=== PATIENT | female | born 2000 | race Caucasian/White ===

== ENCOUNTER 2024-01-29 11:03 | Inpatient (IN) | payer OTHER, MEDICAID, SELFPAY ==
--- NOTE | 2024-01-29 11:08 | ED_ITS ---
HPI - General Adult General Chief complaint: General Medical Stated complaint: Dizziness Time Seen by Provider: 01/29/24 11:37 Source: patient Mode of arrival: ambulatory Limitations: no limitations History of Present Illness ED Provider: KYRIE EID narrative: 23 yo patient PMH of depression, PTSD, being worked up at [facility] for decline since November and chest pain - has editor newspaper at [place] had ECHO on 01/26 no GWMA and right ventricle was normal, EF 60% and valves normal. He notes here with his sister he isn't getting up out of bed, daily headaches, stomach pain, fatigue. No SI. Doesn't feel he is depressed. NO SI. He was taken off all of his medications including his testosterone in November when this started he is only on his sertraline. at [facility], negative tick panel, RPR, HIV, VIJAYA, ECHO, CT head, CXR, TSH and thyroid panel, negative porphyria panel MD complaint: chest pain, headaches, weakness, fatigue Onset (ago): month(s) (since November) Location: head and chest Radiation: non-radiation Severity: severe Quality: aching Pain Consistency: constant Relieving factors: none Exacerbating factors: movement and other (exertion) Associated symptoms: chest pain, headaches, loss of appetite, malaise and weakness Treatments prior to arrival: other (significant work up at [facility]) Related Data Allergies Allergy/AdvReac Type Severity Reaction Status Date / Time No Known Allergies Allergy Verified 01/29/24 11:14 Review of Systems 2 Review of Systems: Constitutional : No Fever, No Chills, pos Fatigue ENT/Mouth : No sore throat, No Rhinorrhea Eyes: No Eye Pain, No Swelling, No Redness Cardiovascular : pos Chest Pain, No SOB, No Dyspnea on Exertion Respiratory : No Cough, No Sputum Gastrointestinal : No Nausea, No Vomiting, No Diarrhea, pos abdominal Pain Genitourinary : No Dysuria, No Urinary Frequency, No Hematuria, Musculoskeletal : No joint pain, No Myalgias, No Joint Swelling Skin : No Skin Lesions, No rash Neuro : pos Weakness, No Numbness, No Dizziness, positive Headache Psych : No Anxiety/Panic, pos Depression Heme/Lymph: No Bruising, No Bleeding,No Lymphadenopathy Endocrine : No Polyuria, No Polydipsia All other systems reviewed and are negative [facility] Past Medical History Attestation statement: The following information was validated with the patient. Source: old records reviewed Medical History PTSD (post-traumatic stress disorder) Depression Social History Social History (Updated 01/29/24 @ 12:37 by Gela Musa DO) Patient Tobacco Use Status: Never used Tobacco Advance Directives: No Advance Directives Information Provided: Yes Physical Exam ED Vital Signs: Vital Signs - 24 hr 01/29/24 11:09 01/29/24 11:41 01/29/24 11:41 Temperature 97.1 F Pulse Rate 78 68 76 Respiratory Rate 16 Blood Pressure 108/75 108/68 105/67 Pulse Oximetry 98 Oxygen Delivery Method Room Air 01/29/24 11:41 01/29/24 12:24 Temperature Pulse Rate 84 77 Respiratory Rate 16 Blood Pressure 113/74 112/71 Pulse Oximetry 97 Oxygen Delivery Method Room Air BMI result Body Mass Index 25.7 Appearance: Alert. Oriented X3. No acute distress. flat affect, withdrawn, appears tired Eyes: Pupils equal, round and reactive to light. ENT: Pharynx normal. Neck: Normal inspection. Neck supple. CVS: Normal heart rate and rhythm. Pulses normal. Respiratory: No respiratory distress. Breath sounds normal. Abdomen: Soft and nontender. Skin: Skin warm and dry. Normal skin color. Normal skin turgor. Extremities: No lower extremity edema. No calf ttp Neuro: Oriented X 3. No motor deficit. No sensory deficit. Course Course Course Narrative: This is a rapid medical exam performed by Ruby Sheldon NP: Additional HPI, ROS, PE not included below will be deferred to primary provider. Patient is a 23-year-old assigned female at who identifies as male, preferred name is Alison, presenting to the emergency department with complaint of headaches, chest pain, and dizziness since November. Was diagnosed by PCP with RV hypertrophy but has not been treated for this yet. Saw editor newspaper this week who referred patient to the ED. Patient went to [facility] and had head CT, CXR, labs, UA and was discharged. Patient specifically requesting an MRI. Plan: EKG, labs Reevaluation(s) Reevaluation #1: inpatient bed search Medical Decision Making Medical Decision Making MDM Narrative: 23 yo patient PMH of depression, PTSD, being worked up at [facility] here with longstanding depression, chest pain, abdominal pain, fatigue he does not have RVH based off of ECHO on 01/26 per records from [facility] at this time given symptoms will obtain basic labs, EKG, ddimer, ortho VS here are negative. I did offer care team consult they are agreeable. He is only on his sertraline. I am not sure why they took him off his testosterone. It seems that all of his symptoms started around November when he was taken off of his medications and stressors started - I do suspect that he has severe depression contributing to his symptoms. Differential Diagnosis Differential Diagnoses: The differential diagnosis associated with the presentation includes fatigue, depression, atypical chest pain Admission/Observation Consideration of admission/observation: Escalation of care including admission/observation considered medical findings negative, negative ortho VS physician observation started at 1246pm pending CARE team Consult Healthcare Provider Management of the patient was discussed with: Behavioral Health Provider inpatient bed search S12 Lab Data MDM Lab Attestation statement: I reviewed the patient's lab results. 01/29/24 11:37 01/29/24 11:37 Labs: Lab Results 01/29/24 01/29/24 Range/Units 11:37 12:27 WBC 5.7 (4.8-10.8) X10*3/uL RBC 4.99 (4.20-5.50) X10*6/uL Hgb 13.7 (12.0-16.0) g/dl Hct 40.4 (37.0-47.0) % MCV 81.0 (80.0-98.0) fL MCH 27.5 (27.0-33.0) pg MCHC 33.9 (31.0-35.0) g/dl RDW 14.3 (11.0-16.0) % Plt Count 257 (160-400) X10*3/uL MPV 8.9 L (9.4-12.3) fL Immature Gran % (Auto) 0.7 H (0.0-0.4) % Neut % (Auto) 54.8 (45-73) % Lymph % (Auto) 32.5 (20-40) % Carbon % (Auto) 6.0 (2-11) % Eos % (Auto) 5.3 H (0-4) % Baso % (Auto) 0.7 (0-2) % Lymph # (Auto) 1.8 (1.2-4.9) X10*3/uL Carbon # (Auto) 0.3 (0.1-1.2) X10*3/uL Eos # (Auto) 0.3 (0.0-0.4) X10*3/uL Baso # (Auto) 0.0 (0.0-0.2) X10*3/uL Abs Immat Gran (auto) 0.04 H (0.00-0.03) X10*3/uL Absolute Neuts (auto) 3.1 (2.0-8.3) x10*3/uL Absolute Nucleated RBC 0.000 (0.0-0.012) X10*3/uL Nucleated RBC % (auto) 0.0 (0.0-0.2) /100WBC PT 12.5 (11.1-13.3) SEC INR 1.0 (0.9-1.1) D-Dimer High Sensitivty 175 NG/ML Sodium 141 (135-145) mmol/L Potassium 3.6 (3.3-5.1) mmol/L Chloride 106 (96-108) mmol/L Carbon Dioxide 25 (22-29) mmol/L Anion Gap 14 (12-20) BUN 13 (9-16) mg/dL Creatinine 0.76 (0.5-1.4) mg/dL Estim Creat Clear Calc 107.2 Estimated GFR > 60 Random Glucose 148 H (60-115) mg/dL Calcium 9.8 (8.4-10.2) mg/dL Magnesium 1.8 (1.6-2.6) mg/dL Total Bilirubin 0.3 (0.0-1.0) mg/dL AST 10 (5-31) U/L ALT 7 (0-31) U/L Alkaline Phosphatase 64 (39-117) U/L Troponin I High Sens < 2.7 (<3.5-17.0) ng/L Total Protein 7.3 (6.5-8.0) g/dL Albumin 4.5 (3.5-5.0) g/dL Beta HCG, Quant < 2 mIU/mL Urine Color Dark Yellow Urine Appearance Clear Urine pH 6.0 (5.0-9.0) Ur Specific [place] 1.025 (1.005-1.025) Urine Protein Trace (Neg-Trace) mg/dL Urine Glucose (UA) Negative (Negative) mg/dL Urine Ketones Trace (Negative) mg/dL Urine Blood Negative (Negative) Urine Nitrite Negative (Negative) Ur Leukocyte Esterase Negative (Negative) Independent Interpretation I performed an independent interpretation of an: EKG Interpretation: Rate: 81 Rhythm: NSR Allen: rightward Normal P waves. Normal JAMMIE. Normal QRS complex. ST T wave : inverted t waves V1-V3, no TREVOR qTC: 436 prior studies: The study has been interpreted contemporaneously by me. . Independent Historian Clinical information obtained from an independent historian. History obtained from or confirmed by: Friend External Record Review External record reviewed: Outpatient record Discharge Plan Discharge Clinical Impression: Severe depression Fatigue Qualifiers: Fatigue type: unspecified Qualified Code(s): R53.83 - Other fatigue Patient Disposition: Still a Patient Print Language: Kyrgyz
[2024-01-29 11:09] VITALS: BP 108/75; PULSE 78; RESP 16; TEMP 36.2; O2SAT 98; BMI 25.7
--- NOTE | 2024-01-29 11:14 | ECG_ITS ---
Test Reason : headache Blood Pressure : / mmHG Vent. Rate : 081 BPM Atrial Rate : 081 BPM P-R Int : 154 ms QRS Dur : 086 ms QT Int : 376 ms P-R-T Axes : 051 094 049 degrees QTc Int : 436 ms Normal sinus rhythm Rightward axis Nonspecific ST and T wave abnormality Abnormal ECG No previous ECGs available Referred By: Tierra Sheldon Electronically Signed By:SKYLER LO MD
[2024-01-29 11:41] VITALS: BP 105/67; BP 108/68; BP 113/74; PULSE 68; PULSE 76; PULSE 84
[2024-01-29 11:42] LABS: MANUAL DIFF FLAG NO
[2024-01-29 11:43] LABS: Basophils Percent Auto 0.7 % (0-2); Eosinophils Absolute Auto 0.3 X10*3/uL (0.0-0.4); Eosinophils Percent Auto 5.3 % (0-4); Hematocrit 40.4 % (37.0-47.0); Hemoglobin 13.7 g/dl (12.0-16.0); Imm Gran Abs Auto 0.04 X10*3/uL (0.00-0.03); Imm Gran Pct Auto 0.7 % (0.0-0.4); Lymphocytes Absolute Auto 1.8 X10*3/uL (1.2-4.9); Lymphocytes Percent Auto 32.5 % (20-40); Mean Corpuscular HGB Conc 33.9 g/dl (31.0-35.0); Mean Corpuscular Hemoglobin 27.5 pg (27.0-33.0); Mean Platelet Volume 8.9 fL (9.4-12.3); Monocytes Absolute Auto 0.3 X10*3/uL (0.1-1.2); Neutrophils Absolute Auto 3.1 x10*3/uL (2.0-8.3); Neutrophils Percent Auto 54.8 % (45-73); Platelet Count 257 X10*3/uL (160-400); Red Blood Count 4.99 X10*6/uL (4.20-5.50); Red Cell Distribution Width 14.3 % (11.0-16.0); White Blood Count 5.7 X10*3/uL (4.8-10.8)
[2024-01-29 11:56] LABS: Prothrombin Time 12.5 SEC (11.1-13.3)
[2024-01-29 12:04] LABS: Alanine Aminotransferase 7 U/L (0-31); Albumin Level 4.5 g/dL (3.5-5.0); Alkaline Phosphatase 64 U/L (39-117); Anion Gap 14 (12-20); Aspartate Amino Transferase 10 U/L (5-31); Bilirubin Total 0.3 mg/dL (0.0-1.0); Blood Urea Nitrogen 13 mg/dL (9-16); Calcium 9.8 mg/dL (8.4-10.2); Carbon Dioxide 25 mmol/L (22-29); Chloride 106 mmol/L (96-108); Creatinine Clr Calc Pharmacy 107.2; Estimated Glomerular Filt Rate > 60; Glucose Random 148 mg/dL (60-115); Magnesium 1.8 mg/dL (1.6-2.6); Potassium 3.6 mmol/L (3.3-5.1); Sodium 141 mmol/L (135-145); Total Protein 7.3 g/dL (6.5-8.0)
[2024-01-29 12:09] LABS: HCG Quantitative < 2 mIU/mL; Troponin-I High Sensitivity < 2.7 ng/L (<3.5-17.0)
[2024-01-29 12:11] LABS: D Dimer High Sensitivity 175 NG/ML
[2024-01-29 12:24] VITALS: BP 112/71; PULSE 77; RESP 16; O2SAT 97
[2024-01-29 12:35] LABS: Appearance Urine Clear; Color Urine Dark Yellow; Glucose Urine UA Negative (Negative); Leukocyte Esterase Urine Negative (Negative); Nitrite Urine Negative (Negative); Specific Gravity - Urine 1.025 (1.005-1.025); Urine Blood Negative (Negative); Urine Ketones Trace mg/dL (Negative); Urine Protein Trace mg/dL (Neg-Trace)
--- NOTE | 2024-01-29 12:46 | MHC.CARE ---
Care team met with Pt who was sitting up in their stretcher. Pt noted that they are here for medical reasons as they do not feel well and was hoping for an MRI. Pt's partner stated they are checking for a possible blood clot however they will not be doing an MRI. There is a possibility that Pt may be suffering psychosomatic which PT denies. A consult was requested as there was noted previous depression, however PT reported that he was doing fine mentally and had no concerns other than what he was experiencing medically. A resource packet was provided to Pt in case of future need.
[2024-01-29 18:06] LABS: Amphetamine Screen Urine Not Detected (Not Detect); Barbiturates, Urine Not Detected (Not Detect); Benzodiazepines Screen Urine Not Detected (Not Detect); Buprenorphine Scr Not Detected (Not Detect); Cannabinoid Screen Urine Not Detected (Not Detect); Cocaine Screen Urine Not Detected (Not Detect); Fentanyl, urine Not Detected (Not Detect); Methadone Screen, Urine Not Detected (Not Detect); Opiate Screen Urine Not Detected (Not Detect); Oxycodone Screen Urine Not Detected (Not Detect); Phencyclidine Screen Urine Not Detected (Not Detect)
--- NOTE | 2024-01-29 19:19 | PC.NURSE ---
patient appears to remain at rest at present respirations are even and unlabored patient appears in no distress.
[2024-01-29 20:39] VITALS: BP 97/67; PULSE 83; RESP 18; TEMP 36.6; O2SAT 98
[2024-01-30 07:02] VITALS: RESP 16
--- NOTE | 2024-01-30 07:04 | PC.NURSE ---
Assumed care of patient at 0645, patient appears to be sleeping, respirations even and unlabored, no apparent distress noted. Continue plan of care for inpatient bedsearch
--- NOTE | 2024-01-30 15:51 | PC.NURSE ---
Patient continues to remain withdrawn, only exiting room to use the bathroom, offers no complaints to this RN, respirations even and unlabored, no apparent distress noted at this time
--- NOTE | 2024-01-30 16:29 | MHC.CARE ---
CARLOS ALBERTO completed for initial boarding- ID # [id number]
[2024-01-30 18:43] VITALS: BP 113/92; PULSE 61; RESP 14; O2SAT 97
--- NOTE | 2024-01-30 19:12 | PC.NURSE ---
patient appears to remain at rest at present, respirations are even and unlabored patient appears in no distress.
[2024-01-30 20:13] VITALS: BP 111/68; PULSE 105; RESP 16; TEMP 36.3; O2SAT 97
[2024-01-31 01:53] VITALS: BP 102/64; PULSE 98; RESP 18; TEMP 36.4; O2SAT 100
[2024-01-31] MEDS: Acetaminophen 325 MG TABLET 975 MG PO (03:12)
[2024-01-31 05:57] VITALS: BP 117/80; PULSE 104; RESP 16; TEMP 36.9; O2SAT 99
[2024-01-31 06:00] VITALS: PULSE 107; RESP 16; O2SAT 97
--- NOTE | 2024-01-31 06:06 | PC.NURSE ---
REPORTED AMNESIA THIS AM FOR LAST 2 DAYS
--- NOTE | 2024-01-31 07:22 | PC.NURSE ---
Assumed care of patient at 0645, patient appears to be in better mood today than yesterday, offering no complaints to this RN, calm and cooperative, smiling and conversing with staff. patient attempted to call his little sister and left a message for her to call back. Continue plan of care for inpatient bedsearch at this time
[2024-01-31 15:50] VITALS: BP 113/71; PULSE 82; RESP 14; TEMP 36.5; O2SAT 98; BMI 25.0
[2024-01-31] MEDS: Acetaminophen 325 MG TABLET 650 MG PO (17:11)
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
[2024-01-31 20:00] VITALS: BP 105/56; PULSE 79; RESP 18; TEMP 35.7
[2024-02-01] MEDS: Acetaminophen 325 MG TABLET 650 MG PO (04:15)
[2024-02-01 08:14] VITALS: BP 100/59; PULSE 104; RESP 16; TEMP 36.4; O2SAT 99
[2024-02-01 08:26] LABS: Estimated Average Glucose 88 mg/dL; Hemoglobin A1c % 4.7 % (<6.0)
[2024-02-01 08:44] LABS: Cholesterol 274 mg/dL (<200); HDL Cholesterol 39 mg/dL (>40); LDL Cholesterol Calculated 209 mg/dL (<100); Triglycerides 132 mg/dL (<150)
[2024-02-01 09:05] LABS: Folate 6.2 ng/mL (> or = 4.0); Vitamin B12 539 pg/mL (200-900)
--- NOTE | 2024-02-01 10:04 | HO.PSYADMNOT ---
HPI Date of Service: 02/01/24 Chief Complaint: Dizziness Sources of Information: patient interviewed, chart reviewed and crisis/core team assessment reviewed HPI Subjective Notes: Cottrell Warning and Conditional Voluntary Narrative: Alison is a 23 year-old trans F to M individual who was initially brought by sister due to chest pain, fatigue and dizziness. In the ED, EKG showed non specific ST changes. CBC unremarkable. CMP without electrolyte imbalances, renal function wnl BUN 13, Cr 0.76. LFT wnl. Utox was negative. Pt apparently had been at [facility] last week and work up was negative (not available to this securities underwriter). On the unit, pt noted to walk with some hesitancy reporting dizziness and lightheadedness. BP taken at that time. SBP on low end 101/70, HR 70 sitting, standing, BP did not show significant change but HR went up to 110. Pt continued to report symptoms of dizziness and lightheadedness and had to hold on to chair. He also reports headache, mental fogginess, tiredness and weakness. He reports that he is not sure about events leading to this admission. Pt reports he has been experiencing dizziness, lightheadedness, headache for some months. He reports he has been seen by his PCP and currently undergoing medical work up. He reports he has seen press box custodian that refer him to ED due to orthostatic changes in BP (no significant changes observe here but clearly HR compensating for it). Pt reports he was told that because they didn't find anything wrong with him they sent him to mental health unit because they told me symptoms probably are in my head. He denies SI/HI. He is open to consider any possibilities relating to his symptoms. No VH/AH. No overt delusional content unless somatic preoccupation in fact are functional. Past Psychiatric History: Inpt: [facility] 2023; [place] 07/2023 OP- sees therapist. Past medication trial: adderall, prazosin. Hx of suicide attempts: denies Medical Evaluation Reviewed: Yes [facility] Medical History PTSD (post-traumatic stress disorder) Depression Family History: parents with substance use Social History: Grew up with parents and sister. completed BA. Currently not working. Substance History: denies Trauma History: reports hx of trauma no details provided- reports both during childhood and as adult Diagnostics Vital Signs (24Hr): Vital Signs - 24 hr 01/31/24 15:50 01/31/24 20:00 02/01/24 08:14 Temperature 97.7 F 96.3 F L 97.6 F Pulse Rate 82 79 104 H Respiratory Rate 14 18 16 Blood Pressure 113/71 105/56 L 100/59 L Pulse Oximetry 98 99 Oxygen Delivery Method Room Air Room Air BMI result Body Mass Index 25.0 Labs 01/29/24 11:37 01/29/24 11:37 Labs: Laboratory Results - last 48 hr 02/01/24 08:02 Estimat Average Glucose 88 Hemoglobin A1c % 4.7 Triglycerides 132 Cholesterol 274 H LDL Cholesterol, Calc 209 H HDL Cholesterol 39 L Vitamin B12 539 Folate 6.2 Meds/Allergies Meds Home Medications ?Medication ?Instructions ?Recorded ?Confirmed ?Type No Known Home Meds 01/30/24 01/30/24 History Allergies Allergies Allergy/AdvReac Type Severity Reaction Status Date / Time No Known Allergies Allergy Verified 01/29/24 11:14 Mental Status Exam Mental Status Exam Narrative: Appearance: wearing hospital gown, good hygiene, in NAD Behavior: cooperative and friendly Psychomotor: no agitation some mild retardation Speech: clear, some paused not due to thought blocking, but possible tiredness and some degree of somnolence, spontaneous TP: mostly linear TC: feeling weak, dizzy, open to treatment Mood: tired Affect: somnolent, intermittently withdrawn SI: denies HI: denies VH/AH: no overt delusions: no overt delusional content Insight/judgment: fair x 2. Memory/cog: alert, oriented x 3. somnolent but no formal testing. Assessment & Plan Assessment & Plan (1) MDD (major depressive disorder), recurrent episode, severe: Status: Acute Code(s): F33.2 - Major depressive disorder, recurrent severe without psychotic features Plan Alison is a 23 year-old F-to-M trans who initially was brought by sister due to dizziness, chest pain, headache, fatigue, unexplained weight loss which has been going on for some months and significantly affecting ability to function. Work up has been for the most part negative including EKG, CMP without electrolyte abnormalities, CBC mostly unremarkable. He denies SI/HI. We discussed collaboration with PCP review medical work up, as it is not clear that current symptoms related to primarily psychiatric condition. He used to be on adderal, prazosin which were stopped due to reports of dizziness and low BP. PLAN 1. Admit to , CV, 15 minutes checks for safety 2. obtain collateral information from PCP, sister 3. aftercare planning 4. will hold on starting new med until collateral information. Patient educated on: diagnosis and medication risk/benefits Reason for continued inpatient stay Substantial Risk for: inability to function Statement Statement: I have reviewed the history and physical and performed a pertinent examination on my patient. No changes have occurred unless specified. If the History and Physical was not performed prior to admission, the Hospitalist's service will be consulted for completing the admission physical. Time Spent With Patient Time: Total time managing care of this patient today ____ minutes.
[2024-02-01 15:42] VITALS: BP 108/68; PULSE 66
[2024-02-01 20:00] VITALS: BP 105/65; PULSE 102; RESP 16; TEMP 36.2; O2SAT 97
[2024-02-02] MEDS: Acetaminophen 325 MG TABLET 650 MG PO (04:10)
[2024-02-02 08:00] VITALS: BP 106/62; PULSE 76; RESP 16; TEMP 37.1; O2SAT 99
--- NOTE | 2024-02-02 16:39 | HO.PSYCHPN ---
Subjective Subjective Date of Service: 02/02/24 Reason For Visit: Dizziness Subjective Notes: Conditional Voluntary Healthcare Proxy: No Guardianship: No Medical Problems Affecting Mental Status: No Interim History: Pt sleeping when tw attempted to meet with them. Attempted x 2 Medication Compliance: Yes Attending Groups: No Review of Systems Medical Review of Systems: unchanged Review of Systems Review of Systems asleep when attempted to meet with pt Mental Status Exam Mental Status Exam Patient Behavior: Asleep Diagnostics Vital Signs (24Hr): Vital Signs - 24 hr 02/01/24 20:00 02/02/24 08:00 Temperature 97.1 F 98.7 F Pulse Rate 102 H 76 Respiratory Rate 16 16 Blood Pressure 105/65 106/62 Pulse Oximetry 97 99 Oxygen Delivery Method Room Air Room Air BMI result Body Mass Index 25.0 Labs 01/29/24 11:37 01/29/24 11:37 Labs: Laboratory Results - last 48 hr 02/01/24 08:02 Estimat Average Glucose 88 Hemoglobin A1c % 4.7 Triglycerides 132 Cholesterol 274 H LDL Cholesterol, Calc 209 H HDL Cholesterol 39 L Vitamin B12 539 Folate 6.2 Medications Medications Current Medications Acetaminophen (Acetaminophen 325 Mg Tablet) 650 mg PO Q6H PRN PRN Reason: Headache/Pain Mild Scale (1-3) Last Admin: 02/02/24 04:10 Dose: 650 mg Al Hydroxide/Mg Hydroxide (Magnesium Hydrox/Alum Hydrox 30 Ml Oral.Susp) 30 ml PO Q6H PRN PRN Reason: Heartburn/Nausea Hydroxyzine HCl (Hydroxyzine Hcl 25 Mg Tablet) 25 mg PO Q6H PRN PRN Reason: Anxiety Magnesium Hydroxide (Milk Of Magnesia 30 Ml Oral.Susp) 30 ml PO DAILY PRN PRN Reason: Constipation Nicotine (Nicotine 21 Mg Patch.Td24) 21 mg TRANSDERMA DAILY PRN PRN Reason: smoking cessation Nicotine Polacrilex (Nicotine Polacrilex 2 Mg Gum) 4 mg BUCCAL Q2H PRN PRN Reason: Nicotine Cravings Trazodone HCl (Trazodone Hcl 50 Mg Tablet) 50 mg PO BEDTIME MRX1 PRN PRN Reason: Insomnia Allergies Allergies Allergy/AdvReac Type Severity Reaction Status Date / Time No Known Allergies Allergy Verified 01/29/24 11:14 Assessment & Plan Assessment & Plan (1) MDD (major depressive disorder), recurrent episode, severe: Status: Acute Code(s): F33.2 - Major depressive disorder, recurrent severe without psychotic features Plan Alison is a 23 year-old F-to-M trans who initially was brought by sister due to dizziness, chest pain, headache, fatigue, unexplained weight loss which has been going on for some months and significantly affecting ability to function. Work up has been for the most part negative including EKG, CMP without electrolyte abnormalities, CBC mostly unremarkable. He denies SI/HI. We discussed collaboration with PCP review medical work up, as it is not clear that current symptoms related to primarily psychiatric condition. He used to be on adderal, prazosin which were stopped due to reports of dizziness and low BP. PLAN 1. Admit to M5, CV, 15 minutes checks for safety 2. obtain collateral information from PCP, sister 3. aftercare planning 4. will hold on starting new med until collateral information. 02/02/24: Continue to work with pt, today, they were asleep and did not participate. Reason for continued inpatient stay Substantial Risk for: med/psych decompensation Time Spent With Patient Time: Total time managing care of this patient today ____ minutes.
[2024-02-02 18:01] VITALS: BP 98/65; PULSE 76; RESP 16; TEMP 37.2; O2SAT 98
[2024-02-02 19:50] VITALS: BP 110/55; PULSE 81; RESP 16; TEMP 36.2; O2SAT 98
[2024-02-02 22:04] LABS: IDNOW Serial# 08D9AD1C; Strep A Nucleic Acid Negative (Negative)
[2024-02-03] MEDS: hydrOXYzine HCL 25 MG TABLET PO (01:20)
[2024-02-03 07:00] VITALS: BMI 25.5
[2024-02-03 08:00] VITALS: BP 104/64; PULSE 84; RESP 17; TEMP 36.9; O2SAT 100
--- NOTE | 2024-02-03 15:40 | P.PNPSI_ITS ---
Subjective Subjective Date of Service: 02/03/24 Reason For Visit: Dizziness Subjective Notes: Conditional Voluntary Healthcare Proxy: No Guardianship: No Medical Problems Affecting Mental Status: No Interim History: Discussed symptoms prior to admission which are a concern including problems with thinking, speaking, clarity of focus and thought. Reports some brief improvement this a.m. with reading, yet overall symptoms are like a puzzle . Reports cardiac consult OP at [place], Dr. Keith told pt there was an issue with his cardiac function, however, he does not know what this was. Message left with [facility] [phone]. Pt also reports no hx of meeting with neurology-will request consult for their input. Per team, sister reports pt has seen Dr. Valdivia. Pt reports a history of complex trauma, yet does not associate this or a potential trigger to current sx exacerbation. Medication Compliance: Yes Side effects from medications: No Attending Groups: No Review of Systems as noted Medical Review of Systems: unchanged Review of Systems Review of Systems as noted Mental Status Exam Mental Status Exam Patient Appearance: Appropriate Patient Orientation: Person, Place, Time and Situation Level of Consciousness: Alert Patient Behavior: Talkative and Good Eye Contact Mood Description: Anxious and Apprehensive Affect Description: Anxious and Apprehensive Patient Cognition Impaired: No Ability to Follow Directions: Good Speech Pattern: Spontaneous Speech and Delayed Memory Description: Episodic Impaired Hallucinations: None Delusions: Not Present Thought Content: positive for Perseveration Depressive Symptoms: Difficulty Concentrating Judgement: Fair Diagnostics Vital Signs (24Hr): Vital Signs - 24 hr 02/02/24 18:01 02/02/24 19:50 02/03/24 08:00 Temperature 98.9 F 97.2 F 98.4 F Pulse Rate 76 81 84 Respiratory Rate 16 16 17 Blood Pressure 98/65 110/55 L 104/64 Pulse Oximetry 98 98 100 Oxygen Delivery Method Room Air Room Air Room Air BMI result Body Mass Index 25.5 Labs 01/29/24 11:37 01/29/24 11:37 Labs: Laboratory Results - last 48 hr 02/02/24 21:35 S. pyogenes GrpA JESSICA Negative Medications Medications Current Medications Acetaminophen (Acetaminophen 325 Mg Tablet) 650 mg PO Q6H PRN PRN Reason: Headache/Pain Mild Scale (1-3) Last Admin: 02/02/24 04:10 Dose: 650 mg Al Hydroxide/Mg Hydroxide (Magnesium Hydrox/Alum Hydrox 30 Ml Oral.Susp) 30 ml PO Q6H PRN PRN Reason: Heartburn/Nausea Hydroxyzine HCl (Hydroxyzine Hcl 25 Mg Tablet) 25 mg PO Q6H PRN PRN Reason: Anxiety Last Admin: 02/03/24 01:20 Dose: 25 mg Magnesium Hydroxide (Milk Of Magnesia 30 Ml Oral.Susp) 30 ml PO DAILY PRN PRN Reason: Constipation Nicotine (Nicotine 21 Mg Patch.Td24) 21 mg TRANSDERMA DAILY PRN PRN Reason: smoking cessation Nicotine Polacrilex (Nicotine Polacrilex 2 Mg Gum) 4 mg BUCCAL Q2H PRN PRN Reason: Nicotine Cravings Trazodone HCl (Trazodone Hcl 50 Mg Tablet) 50 mg PO BEDTIME MRX1 PRN PRN Reason: Insomnia Allergies Allergies Allergy/AdvReac Type Severity Reaction Status Date / Time No Known Allergies Allergy Verified 01/29/24 11:14 Assessment & Plan Assessment & Plan (1) MDD (major depressive disorder), recurrent episode, severe: Status: Acute Code(s): F33.2 - Major depressive disorder, recurrent severe without psychotic features Plan Alison is a 23 year-old F-to-M trans who initially was brought by sister due to dizziness, chest pain, headache, fatigue, unexplained weight loss which has been going on for some months and significantly affecting ability to function. Work up has been for the most part negative including EKG, CMP without electrolyte abnormalities, CBC mostly unremarkable. He denies SI/HI. We discussed collaboration with PCP review medical work up, as it is not clear that current symptoms related to primarily psychiatric condition. He used to be on adderal, prazosin which were stopped due to reports of dizziness and low BP. PLAN 1. Admit to M5, CV, 15 minutes checks for safety 2. obtain collateral information from PCP, sister 3. aftercare planning 4. will hold on starting new med until collateral information. 02/02 Neurology consult Connect with OP cardiac team Reason for continued inpatient stay Substantial Risk for: rapid decompensation and med/psych decompensation Time Spent With Patient Time: Total time managing care of this patient today ____ minutes.
[2024-02-03 19:54] VITALS: BP 112/60; PULSE 80; RESP 18; TEMP 36.2; O2SAT 97
--- NOTE | 2024-02-04 | ECG_ITS ---
Test Reason : CP, cardiac Hx Blood Pressure : / mmHG Vent. Rate : 063 BPM Atrial Rate : 063 BPM P-R Int : 162 ms QRS Dur : 088 ms QT Int : 418 ms P-R-T Axes : 053 092 071 degrees QTc Int : 427 ms Normal sinus rhythm Rightward axis Borderline ECG When compared with ECG of 29-JAN-2024 11:13, T wave inversion no longer evident in Anterior leads Referred By: Luciano Fischer Electronically Signed By:RICKIE MARINO
[2024-02-04 08:14] VITALS: BP 100/57; PULSE 90; RESP 18; TEMP 37.5; O2SAT 100
[2024-02-04] MEDS: Ondansetron ODT 4 MG TAB.RAPDIS TRANSLINGU (11:30)
--- NOTE | 2024-02-04 11:48 | P.PNPSI_ITS ---
Subjective Subjective Date of Service: 02/04/24 Reason For Visit: Dizziness Subjective Notes: Conditional Voluntary Healthcare Proxy: No Guardianship: No Medical Problems Affecting Mental Status: No Interim History: Pt considering re-starting Sertraline. Neurology consult called for vertigo, headaches, dizziness, lightheadedness, pt perceiving cognition changes speech changes and periods of amnesia Message left with [facility], ? [facility] Medication Compliance: Yes Side effects from medications: No Review of Systems Acute medical concerns: No Medical Review of Systems: unchanged Review of Systems Review of Systems as noted Mental Status Exam Mental Status Exam Patient Appearance: Appropriate Patient Orientation: Person, Place, Time and Situation Level of Consciousness: Alert Patient Behavior: Talkative and Good Eye Contact Mood Description: Anxious and Apprehensive Affect Description: Anxious and Apprehensive Patient Cognition Impaired: No Ability to Follow Directions: Good Speech Pattern: Spontaneous Speech and Delayed Memory Description: Episodic Impaired Hallucinations: None Delusions: Not Present Thought Content: positive for Perseveration Depressive Symptoms: Difficulty Concentrating Judgement: Fair Diagnostics Vital Signs (24Hr): Vital Signs - 24 hr 02/03/24 19:54 02/04/24 08:14 Temperature 97.2 F 99.5 F Pulse Rate 80 90 Respiratory Rate 18 18 Blood Pressure 112/60 100/57 L Pulse Oximetry 97 100 Oxygen Delivery Method Room Air Room Air BMI result Body Mass Index 25.5 Labs 01/29/24 11:37 01/29/24 11:37 Labs: Laboratory Results - last 48 hr 02/02/24 21:35 S. pyogenes GrpA JESSICA Negative Medications Medications Current Medications Acetaminophen (Acetaminophen 325 Mg Tablet) 650 mg PO Q6H PRN PRN Reason: Headache/Pain Mild Scale (1-3) Last Admin: 02/02/24 04:10 Dose: 650 mg Al Hydroxide/Mg Hydroxide (Magnesium Hydrox/Alum Hydrox 30 Ml Oral.Susp) 30 ml PO Q6H PRN PRN Reason: Heartburn/Nausea Hydroxyzine HCl (Hydroxyzine Hcl 25 Mg Tablet) 25 mg PO Q6H PRN PRN Reason: Anxiety Last Admin: 02/03/24 01:20 Dose: 25 mg Magnesium Hydroxide (Milk Of Magnesia 30 Ml Oral.Susp) 30 ml PO DAILY PRN PRN Reason: Constipation Nicotine (Nicotine 21 Mg Patch.Td24) 21 mg TRANSDERMA DAILY PRN PRN Reason: smoking cessation Nicotine Polacrilex (Nicotine Polacrilex 2 Mg Gum) 4 mg BUCCAL Q2H PRN PRN Reason: Nicotine Cravings Ondansetron HCl (Ondansetron Odt 4 Mg Tab.Rapdis) 4 mg TRANSLINGU Q8H PRN PRN Reason: Nausea and Vomiting Last Admin: 02/04/24 11:30 Dose: 4 mg Trazodone HCl (Trazodone Hcl 50 Mg Tablet) 50 mg PO BEDTIME MRX1 PRN PRN Reason: Insomnia Allergies Allergies Allergy/AdvReac Type Severity Reaction Status Date / Time No Known Allergies Allergy Verified 01/29/24 11:14 Assessment & Plan Assessment & Plan (1) MDD (major depressive disorder), recurrent episode, severe: Status: Acute Code(s): F33.2 - Major depressive disorder, recurrent severe without psychotic features Plan Alison is a 23 year-old F-to-M trans who initially was brought by sister due to dizziness, chest pain, headache, fatigue, unexplained weight loss which has been going on for some months and significantly affecting ability to function. Work up has been for the most part negative including EKG, CMP without electrolyte abnormalities, CBC mostly unremarkable. He denies SI/HI. We discussed collaboration with PCP review medical work up, as it is not clear that current symptoms related to primarily psychiatric condition. He used to be on adderal, prazosin which were stopped due to reports of dizziness and low BP. PLAN 1. Admit to M5, CV, 15 minutes checks for safety 2. obtain collateral information from PCP, sister 3. aftercare planning 4. will hold on starting new med until collateral information. 02/02/24: Continue to work with pt, today, they were asleep and did not participate. 02/03: Continue eval/tx Reason for continued inpatient stay Substantial Risk for: rapid decompensation Time Spent With Patient Time: Total time managing care of this patient today ____ minutes.
--- NOTE | 2024-02-04 12:55 | P.CNNE_ITS ---
History of Present Illness Data of Consult Service Date: 02/04/24 Primary Care Provider: Hector Deras MD HPI This is a 23 year-old trans F to M individual who was initially brought by sister due to chest pain, fatigue and dizziness. In the ED, EKG showed non specific ST changes. Normal labs. Tox screen was negative. Noted to walk with some hesitancy reporting dizziness and lightheadedness. BP taken at that time was 101/70, HR 70 sitting, standing, BP did not show significant change but HR went up to 110. Pt continued to report symptoms of dizziness and lightheadedness and had to hold on to chair. He also reports headache, mental fogginess, tiredness and weakness. He reports that he is not sure about events leading to this admission. Pt reports he has been experiencing dizziness, lightheadedness, headache for some months. He reports he has been seen by his PCP and currently undergoing medical work up. He reports he has seen lining finisher that refer him to ED due to orthostatic changes in BP (not reproduced here) She reports memory changes that come and go in that she feels better in the early part of the day. Sometimes she gets momentarily disoriented as to where she is. She dropped out in final year of college at [employer]. She says she has had constant headache for 2 years that never goes away and periods of confusion and vision impairment. MRI of the brain at [facility] in August 2023 was unremarkable except for a single nonspecific white matter abnormality. She reports excessive sleeping of 16 hours a day. She was diagnosed with ADHD at age 14 and said that she felt better with the Adderall. She stopped all of her medications in November which included sertraline Adderall, mirtazapine and testosterone PMFSH Past Medical History Medical History PTSD (post-traumatic stress disorder) Depression Social History Social History (Updated 01/29/24 @ 12:37 by Gela Musa DO) Household Members: Other Household Members Other:: sister Angela Bo Housing: Apartment Do you presently have visiting nurse or other home services: No Unable to assess alcohol history related to: Refusing to respond Patient Tobacco Use Status: Never used Tobacco Smoked in Last 30 Days: No e-Cigarette/Vaping Use: Never Used Second Hand Smoke Exposure: No Use of substances other than those prescribed or required for medical reasons: No Currently Displaying Signs/Symptoms of Drug Intoxication Withdrawal: No Have you been hit, kicked, punched, or otherwise hurt by someone within the past year? If so, by whom?: No Do you feel safe in your current relationship?: No Current Relationship Is there a partner from a previous relationship who is making you feel unsafe now?: No Are you made to feel afraid or neglected: No Spiritual Healthcare Practices: none Denominational Healthcare Practices: none Cultural Healthcare Practices: none Advance Directives: No Advance Directives Information Provided: Yes Do you have thoughts of harming others: None Do you have a plan to hurt others: No Plan Recently lost weight without trying: Unsure Eating poorly because of decreased appetite: Yes Nutrition Risks: Poor intake 0-25% >4 days Patient : No : No Poor oral hygiene: No service: No Sexual orientation: Unable to collect Meds Allergies Allergy/AdvReac Type Severity Reaction Status Date / Time No Known Allergies Allergy Verified 01/29/24 11:14 Active Medications: Current Medications Acetaminophen (Acetaminophen 325 Mg Tablet) 650 mg PO Q6H PRN PRN Reason: Headache/Pain Mild Scale (1-3) Last Admin: 02/02/24 04:10 Dose: 650 mg Al Hydroxide/Mg Hydroxide (Magnesium Hydrox/Alum Hydrox 30 Ml Oral.Susp) 30 ml PO Q6H PRN PRN Reason: Heartburn/Nausea Hydroxyzine HCl (Hydroxyzine Hcl 25 Mg Tablet) 25 mg PO Q6H PRN PRN Reason: Anxiety Last Admin: 02/03/24 01:20 Dose: 25 mg Magnesium Hydroxide (Milk Of Magnesia 30 Ml Oral.Susp) 30 ml PO DAILY PRN PRN Reason: Constipation Nicotine (Nicotine 21 Mg Patch.Td24) 21 mg TRANSDERMA DAILY PRN PRN Reason: smoking cessation Nicotine Polacrilex (Nicotine Polacrilex 2 Mg Gum) 4 mg BUCCAL Q2H PRN PRN Reason: Nicotine Cravings Ondansetron HCl (Ondansetron Odt 4 Mg Tab.Rapdis) 4 mg TRANSLINGU Q8H PRN PRN Reason: Nausea and Vomiting Last Admin: 02/04/24 11:30 Dose: 4 mg Trazodone HCl (Trazodone Hcl 50 Mg Tablet) 50 mg PO BEDTIME MRX1 PRN PRN Reason: Insomnia Home Medications ?Medication ?Instructions ?Recorded ?Confirmed ?Last Taken ?Type No Known Home Meds 01/30/24 01/30/24 Unknown History Physical Exam 2 Vital Signs: Vital Signs: Last Vital Signs Temp 99.5 F 02/04/24 08:14 Pulse 90 02/04/24 08:14 Resp 18 02/04/24 08:14 BP 100/57 L 02/04/24 08:14 Pulse Ox 100 02/04/24 08:14 O2 Del Method Room Air 02/04/24 08:14 BMI result Body Mass Index 25.5 Neuro: Other: Completely normal neurological examination Results Labs 01/29/24 11:37 01/29/24 11:37 Assessment and Plan (1) Severe depression: Status: Acute I evaluated her for multiple complaints related to cognitive abilities and memory or confusion her excessive sleep and constant headaches which sound like muscle tension type daily headaches. I find no organic basis for his symptoms, and I believe that these are all related to her psychiatric issues. She's already had an MRI done in August which was unremarkable. I would recommend checking a thyroid profile, B12, folate levels and an outpatient EEG or if she is here next week it could be done here at the hospital. No further imaging studies are necessary. She can also have an outpatient neuropsych evaluation Procedures Date of Service Date of Service: 02/04/24
[2024-02-04 20:00] VITALS: BP 148/96; PULSE 74; TEMP 36.4; O2SAT 100
[2024-02-04 21:10] VITALS: BP 100/58; PULSE 76; TEMP 36.4
[2024-02-05] MEDS: Acetaminophen 325 MG TABLET 650 MG PO ×2 (00:01→17:07)
[2024-02-05] MEDS: traZODone HCL 50 MG TABLET PO ×2 (00:02→03:34)
[2024-02-05 08:00] VITALS: BP 108/65; PULSE 73; RESP 17; TEMP 37.1; O2SAT 99
[2024-02-05] MEDS: Ondansetron ODT 4 MG TAB.RAPDIS TRANSLINGU (08:43)
--- NOTE | 2024-02-05 11:27 | HO.PSYCHPN ---
Subjective Subjective Date of Service: 02/05/24 Reason For Visit: Dizziness Subjective Notes: Conditional Voluntary Healthcare Proxy: No Guardianship: No Medical Problems Affecting Mental Status: Yes (Vertigo, dizziness) Interim History: Patient was seen and reviewed in rounds. Records and plans were reviewed. He talked about his various medical issues and complaints. He states that he used to be on Zoloft and Adderall and would like to resume the Zoloft which he took about 10 or 12 days ago. He is not sure of the dose but I believe it sounds like 100 mg which I will start as of tomorrow. He has been guarded. He does come out and interacts with others on occasions. EKG was within normal range. No SI. No other changes were made Review of Systems Review of Systems Yes all other systems are reviewed and are negative Mental Status Exam Mental Status Exam Narrative: In today's visit he is alert, oriented and pleasant. Normal speech. Good eye contact. Affect is appropriate, subdued. No SI. Cognitively is intact. No abnormalities of gait. No musculoskeletal problems. Judgment is intact Diagnostics Vital Signs (24Hr): Vital Signs - 24 hr 02/04/24 20:00 02/04/24 21:10 02/05/24 08:00 Temperature 97.6 F 97.5 F 98.8 F Pulse Rate 74 76 73 Respiratory Rate 17 Blood Pressure 148/96 H 100/58 L 108/65 Pulse Oximetry 100 99 Oxygen Delivery Method Room Air Room Air BMI result Body Mass Index 25.5 Labs 01/29/24 11:37 01/29/24 11:37 Medications Medications Current Medications Acetaminophen (Acetaminophen 325 Mg Tablet) 650 mg PO Q6H PRN PRN Reason: Headache/Pain Mild Scale (1-3) Last Admin: 02/05/24 00:01 Dose: 650 mg Al Hydroxide/Mg Hydroxide (Magnesium Hydrox/Alum Hydrox 30 Ml Oral.Susp) 30 ml PO Q6H PRN PRN Reason: Heartburn/Nausea Hydroxyzine HCl (Hydroxyzine Hcl 25 Mg Tablet) 25 mg PO Q6H PRN PRN Reason: Anxiety Last Admin: 02/03/24 01:20 Dose: 25 mg Magnesium Hydroxide (Milk Of Magnesia 30 Ml Oral.Susp) 30 ml PO DAILY PRN PRN Reason: Constipation Nicotine (Nicotine 21 Mg Patch.Td24) 21 mg TRANSDERMA DAILY PRN PRN Reason: smoking cessation Nicotine Polacrilex (Nicotine Polacrilex 2 Mg Gum) 4 mg BUCCAL Q2H PRN PRN Reason: Nicotine Cravings Ondansetron HCl (Ondansetron Odt 4 Mg Tab.Rapdis) 4 mg TRANSLINGU Q8H PRN PRN Reason: Nausea and Vomiting Last Admin: 02/05/24 08:43 Dose: 4 mg Trazodone HCl (Trazodone Hcl 50 Mg Tablet) 50 mg PO BEDTIME MRX1 PRN PRN Reason: Insomnia Last Admin: 02/05/24 03:34 Dose: 50 mg Allergies Allergies Allergy/AdvReac Type Severity Reaction Status Date / Time No Known Allergies Allergy Verified 01/29/24 11:14 Assessment & Plan Assessment & Plan (1) MDD (major depressive disorder), recurrent episode, severe: Status: Acute Code(s): F33.2 - Major depressive disorder, recurrent severe without psychotic features Plan Alison is a 23 year-old F-to-M trans who initially was brought by sister due to dizziness, chest pain, headache, fatigue, unexplained weight loss which has been going on for some months and significantly affecting ability to function. Work up has been for the most part negative including EKG, CMP without electrolyte abnormalities, CBC mostly unremarkable. He denies SI/HI. We discussed collaboration with PCP review medical work up, as it is not clear that current symptoms related to primarily psychiatric condition. He used to be on adderal, prazosin which were stopped due to reports of dizziness and low BP. PLAN 1. Admit to , CV, 15 minutes checks for safety 2. obtain collateral information from PCP, sister 3. aftercare planning 4. will hold on starting new med until collateral information. 02/02/24: Continue to work with pt, today, they were asleep and did not participate. 02/03: Continue eval/tx Reason for continued inpatient stay Substantial Risk for: med/psych decompensation Time Spent With Patient Time: Total time managing care of this patient today ____ minutes.
[2024-02-05] MEDS: Milk of Magnesia 30 ML ORAL.SUSP PO (17:08)
[2024-02-05 20:00] VITALS: BP 106/58; PULSE 78; TEMP 36.4; O2SAT 98
[2024-02-06] MEDS: Sertraline HCL 100 MG TABLET PO (08:44)
--- NOTE | 2024-02-06 09:07 | HO.PSYCHPN ---
Subjective Subjective Date of Service: 02/06/24 Reason For Visit: Dizziness Subjective Notes: Conditional Voluntary Healthcare Proxy: No Guardianship: No Medical Problems Affecting Mental Status: Yes (Vertigo, dizziness) Interim History: Patient was seen and reviewed in rounds. Records and plans were reviewed. He continues to be somatically preoccupied and is anxious to learn about upcoming consultation with Neurology. Eating and sleeping adequately. No SI. No complaints or side effects. No changes were made today Review of Systems Review of Systems Yes all other systems are reviewed and are negative Mental Status Exam Mental Status Exam Narrative: In today's visit he is alert, oriented and pleasant. Normal speech. Good eye contact. Affect is appropriate, subdued. No SI. Cognitively is intact. No abnormalities of gait. No musculoskeletal problems. Judgment is intact Diagnostics Vital Signs (24Hr): Vital Signs - 24 hr 02/05/24 20:00 Temperature 97.5 F Pulse Rate 78 Blood Pressure 106/58 L Pulse Oximetry 98 Oxygen Delivery Method Room Air BMI result Body Mass Index 25.5 Labs 01/29/24 11:37 01/29/24 11:37 Medications Medications Current Medications Acetaminophen (Acetaminophen 325 Mg Tablet) 650 mg PO Q6H PRN PRN Reason: Headache/Pain Mild Scale (1-3) Last Admin: 02/05/24 17:07 Dose: 650 mg Al Hydroxide/Mg Hydroxide (Magnesium Hydrox/Alum Hydrox 30 Ml Oral.Susp) 30 ml PO Q6H PRN PRN Reason: Heartburn/Nausea Hydroxyzine HCl (Hydroxyzine Hcl 25 Mg Tablet) 25 mg PO Q6H PRN PRN Reason: Anxiety Last Admin: 02/03/24 01:20 Dose: 25 mg Magnesium Hydroxide (Milk Of Magnesia 30 Ml Oral.Susp) 30 ml PO DAILY PRN PRN Reason: Constipation Last Admin: 02/05/24 17:08 Dose: 30 ml Nicotine (Nicotine 21 Mg Patch.Td24) 21 mg TRANSDERMA DAILY PRN PRN Reason: smoking cessation Nicotine Polacrilex (Nicotine Polacrilex 2 Mg Gum) 4 mg BUCCAL Q2H PRN PRN Reason: Nicotine Cravings Ondansetron HCl (Ondansetron Odt 4 Mg Tab.Rapdis) 4 mg TRANSLINGU Q8H PRN PRN Reason: Nausea and Vomiting Last Admin: 02/05/24 08:43 Dose: 4 mg Sertraline HCl (Sertraline Hcl 100 Mg Tablet) 100 mg PO DAILY KENNY Last Admin: 02/06/24 08:44 Dose: 100 mg Trazodone HCl (Trazodone Hcl 50 Mg Tablet) 50 mg PO BEDTIME MRX1 PRN PRN Reason: Insomnia Last Admin: 02/05/24 03:34 Dose: 50 mg Allergies Allergies Allergy/AdvReac Type Severity Reaction Status Date / Time No Known Allergies Allergy Verified 01/29/24 11:14 Assessment & Plan Assessment & Plan (1) MDD (major depressive disorder), recurrent episode, severe: Status: Acute Code(s): F33.2 - Major depressive disorder, recurrent severe without psychotic features Plan Alison is a 23 year-old F-to-M trans who initially was brought by sister due to dizziness, chest pain, headache, fatigue, unexplained weight loss which has been going on for some months and significantly affecting ability to function. Work up has been for the most part negative including EKG, CMP without electrolyte abnormalities, CBC mostly unremarkable. He denies SI/HI. We discussed collaboration with PCP review medical work up, as it is not clear that current symptoms related to primarily psychiatric condition. He used to be on adderal, prazosin which were stopped due to reports of dizziness and low BP. PLAN 1. Admit to M5, CV, 15 minutes checks for safety 2. obtain collateral information from PCP, sister 3. aftercare planning 4. will hold on starting new med until collateral information. 02/02/24: Continue to work with pt, today, they were asleep and did not participate. 02/03: Continue eval/tx Reason for continued inpatient stay Substantial Risk for: med/psych decompensation Time Spent With Patient Time: Total time managing care of this patient today ____ minutes.
[2024-02-06 09:44] VITALS: BP 111/67; PULSE 83; RESP 14; TEMP 36.4; O2SAT 99
[2024-02-06 19:40] VITALS: BP 113/60; PULSE 75; RESP 14; TEMP 36.5; O2SAT 98
[2024-02-06] MEDS: Acetaminophen 325 MG TABLET 650 MG PO (19:50)
[2024-02-06] MEDS: Ondansetron ODT 4 MG TAB.RAPDIS TRANSLINGU (19:51)
[2024-02-07 07:51] VITALS: BP 121/72; PULSE 80; TEMP 36.7; O2SAT 98
[2024-02-07] MEDS: Sertraline HCL 100 MG TABLET PO (08:14)
[2024-02-07 11:41] LABS: Thyroid Stimulating Hormone 1.24 uIU/mL (0.32-4.0)
--- NOTE | 2024-02-07 15:36 | HO.PSYCHPN ---
Subjective Subjective Date of Service: 02/07/24 Reason For Visit: Dizziness Subjective Notes: Conditional Voluntary Healthcare Proxy: No Guardianship: No Medical Problems Affecting Mental Status: No Interim History: Sertraline re-started over the weekend per pt request and is tolerated thus far. Review of neuro eval with pt, review of call with [facility] and their impressions. discussed continuing eval. Thyroid panel, EEG, neuro psych testing, ESR, CRP, elevations of lipids and options. Pt agrees and will check in with sister to validate. Reports family does not believe in illness except cancer and the expectation is that pt will proceed with life and tasks if illness if found. Disucssed some of Dr. Choi's work with ADD and subtypes and holistic approach to treating that vs stimulants with current cardiac issues questioned. Medication Compliance: Yes Side effects from medications: No Attending Groups: Intermittent Review of Systems Acute medical concerns: No Medical Review of Systems: unchanged Review of Systems Review of Systems brain fog, cognitive sx reported, pain Mental Status Exam Mental Status Exam Narrative: In today's visit he is alert, oriented and pleasant. Normal speech. Good eye contact. Affect is appropriate, subdued. No SI. Cognitively is intact. No abnormalities of gait. No musculoskeletal problems. Judgment is intact Diagnostics Vital Signs (24Hr): Vital Signs - 24 hr 02/06/24 19:40 02/07/24 07:51 Temperature 97.7 F 98.0 F Pulse Rate 75 80 Respiratory Rate 14 Blood Pressure 113/60 121/72 Pulse Oximetry 98 98 Oxygen Delivery Method Room Air BMI result Body Mass Index 25.5 Labs 01/29/24 11:37 01/29/24 11:37 Labs: Laboratory Results - last 48 hr 02/07/24 10:59 TSH 1.24 Medications Medications Current Medications Acetaminophen (Acetaminophen 325 Mg Tablet) 650 mg PO Q6H PRN PRN Reason: Headache/Pain Mild Scale (1-3) Last Admin: 02/06/24 19:50 Dose: 650 mg Al Hydroxide/Mg Hydroxide (Magnesium Hydrox/Alum Hydrox 30 Ml Oral.Susp) 30 ml PO Q6H PRN PRN Reason: Heartburn/Nausea Hydroxyzine HCl (Hydroxyzine Hcl 25 Mg Tablet) 25 mg PO Q6H PRN PRN Reason: Anxiety Last Admin: 02/03/24 01:20 Dose: 25 mg Magnesium Hydroxide (Milk Of Magnesia 30 Ml Oral.Susp) 30 ml PO DAILY PRN PRN Reason: Constipation Last Admin: 02/05/24 17:08 Dose: 30 ml Nicotine (Nicotine 21 Mg Patch.Td24) 21 mg TRANSDERMA DAILY PRN PRN Reason: smoking cessation Nicotine Polacrilex (Nicotine Polacrilex 2 Mg Gum) 4 mg BUCCAL Q2H PRN PRN Reason: Nicotine Cravings Ondansetron HCl (Ondansetron Odt 4 Mg Tab.Rapdis) 4 mg TRANSLINGU Q8H PRN PRN Reason: Nausea and Vomiting Last Admin: 02/06/24 19:51 Dose: 4 mg Sertraline HCl (Sertraline Hcl 100 Mg Tablet) 100 mg PO DAILY KENNY Last Admin: 02/07/24 08:14 Dose: 100 mg Trazodone HCl (Trazodone Hcl 50 Mg Tablet) 50 mg PO BEDTIME MRX1 PRN PRN Reason: Insomnia Last Admin: 02/05/24 03:34 Dose: 50 mg Allergies Allergies Allergy/AdvReac Type Severity Reaction Status Date / Time No Known Allergies Allergy Verified 01/29/24 11:14 Assessment & Plan Assessment & Plan (1) MDD (major depressive disorder), recurrent episode, severe: Status: Acute Code(s): F33.2 - Major depressive disorder, recurrent severe without psychotic features Plan Alison is a 23 year-old F-to-M trans who initially was brought by sister due to dizziness, chest pain, headache, fatigue, unexplained weight loss which has been going on for some months and significantly affecting ability to function. Work up has been for the most part negative including EKG, CMP without electrolyte abnormalities, CBC mostly unremarkable. He denies SI/HI. We discussed collaboration with PCP review medical work up, as it is not clear that current symptoms related to primarily psychiatric condition. He used to be on adderal, prazosin which were stopped due to reports of dizziness and low BP. PLAN 1. Admit to M5, CV, 15 minutes checks for safety 2. obtain collateral information from PCP, sister 3. aftercare planning 4. will hold on starting new med until collateral information. 02/02/24: Continue to work with pt, today, they were asleep and did not participate. 02/03: Continue eval/tx 02/06: Pt will discuss with sister further testing. If all agree will proceed on 02/07. Reason for continued inpatient stay Substantial Risk for: rapid decompensation Time Spent With Patient Time: Total time managing care of this patient today ____ minutes.
[2024-02-07 20:00] VITALS: BP 118/68; PULSE 74; RESP 16; TEMP 36.9; O2SAT 98
[2024-02-07] MEDS: Ondansetron ODT 4 MG TAB.RAPDIS TRANSLINGU (22:45)
[2024-02-07] MEDS: polyethylene glycoL 3350 17 GM POWD.PACK PO (22:45)
[2024-02-08 08:23] VITALS: BP 116/62; PULSE 95; RESP 18; TEMP 36.8; O2SAT 97
[2024-02-08] MEDS: Sertraline HCL 100 MG TABLET PO (08:31)
[2024-02-08] MEDS: Ondansetron ODT 4 MG TAB.RAPDIS TRANSLINGU (08:31)
[2024-02-08] MEDS: Milk of Magnesia 30 ML ORAL.SUSP PO (09:56)
[2024-02-08] MEDS: polyethylene glycoL 3350 17 GM POWD.PACK PO (09:57)
[2024-02-08] MEDS: hydrOXYzine HCL 25 MG TABLET PO (11:15)
--- NOTE | 2024-02-08 12:35 | P.PNPSI_ITS ---
Subjective Subjective Date of Service: 02/08/24 Reason For Visit: Dizziness Subjective Notes: Conditional Voluntary Healthcare Proxy: No Guardianship: No Medical Problems Affecting Mental Status: No Interim History: EEG ordered, however team is away, will schedule OP. Cardiology/labs ordered- crp, esr, lyme,hiv. Neuro psych testing TBS as an OP. CLAUDIA eval TBS as an out pt. Pt feeling ready to discharge. Will plan for 02/09. Asks for medication for pain- throat, chest, head,stomach Medication Compliance: Yes Side effects from medications: No Attending Groups: Intermittent Review of Systems Acute medical concerns: No Medical Review of Systems: unchanged Review of Systems Review of Systems Reports of headache, chest pain, stomach pain, throat burning Mental Status Exam Mental Status Exam Narrative: In today's visit he is alert, oriented and pleasant. Normal speech. Good eye contact. Affect is appropriate, subdued. No SI. Cognitively is intact. No abnormalities of gait. No musculoskeletal problems. Judgment is intact Diagnostics Vital Signs (24Hr): Vital Signs - 24 hr 02/07/24 20:00 02/08/24 08:23 Temperature 98.5 F 98.3 F Pulse Rate 74 95 Respiratory Rate 16 18 Blood Pressure 118/68 116/62 Pulse Oximetry 98 97 Oxygen Delivery Method Room Air Room Air BMI result Body Mass Index 25.5 Labs 01/29/24 11:37 01/29/24 11:37 Labs: Laboratory Results - last 48 hr 02/07/24 10:59 TSH 1.24 Medications Medications Current Medications Acetaminophen (Acetaminophen 325 Mg Tablet) 650 mg PO Q6H PRN PRN Reason: Headache/Pain Mild Scale (1-3) Last Admin: 02/06/24 19:50 Dose: 650 mg Al Hydroxide/Mg Hydroxide (Magnesium Hydrox/Alum Hydrox 30 Ml Oral.Susp) 30 ml PO Q6H PRN PRN Reason: Heartburn/Nausea Hydroxyzine HCl (Hydroxyzine Hcl 25 Mg Tablet) 25 mg PO Q6H PRN PRN Reason: Anxiety Last Admin: 02/08/24 11:15 Dose: 25 mg Magnesium Hydroxide (Milk Of Magnesia 30 Ml Oral.Susp) 30 ml PO DAILY PRN PRN Reason: Constipation Last Admin: 02/08/24 09:56 Dose: 30 ml Nicotine (Nicotine 21 Mg Patch.Td24) 21 mg TRANSDERMA DAILY PRN PRN Reason: smoking cessation Nicotine Polacrilex (Nicotine Polacrilex 2 Mg Gum) 4 mg BUCCAL Q2H PRN PRN Reason: Nicotine Cravings Ondansetron HCl (Ondansetron Odt 4 Mg Tab.Rapdis) 4 mg TRANSLINGU Q8H PRN PRN Reason: Nausea and Vomiting Last Admin: 02/08/24 08:31 Dose: 4 mg Polyethylene Glycol (Polyethylene Glycol 3350 17 Gm Powd.Pack) 17 gm PO BID PRN PRN Reason: constipation Last Admin: 02/08/24 09:57 Dose: 17 gm Sertraline HCl (Sertraline Hcl 100 Mg Tablet) 100 mg PO DAILY KENNY Last Admin: 02/08/24 08:31 Dose: 100 mg Trazodone HCl (Trazodone Hcl 50 Mg Tablet) 50 mg PO BEDTIME MRX1 PRN PRN Reason: Insomnia Last Admin: 02/05/24 03:34 Dose: 50 mg Allergies Allergies Allergy/AdvReac Type Severity Reaction Status Date / Time No Known Allergies Allergy Verified 01/29/24 11:14 Assessment & Plan Assessment & Plan (1) MDD (major depressive disorder), recurrent episode, severe: Status: Acute Code(s): F33.2 - Major depressive disorder, recurrent severe without psychotic features Plan Alison is a 23 year-old F-to-M trans who initially was brought by sister due to dizziness, chest pain, headache, fatigue, unexplained weight loss which has been going on for some months and significantly affecting ability to function. Work up has been for the most part negative including EKG, CMP without electrolyte abnormalities, CBC mostly unremarkable. He denies SI/HI. We discussed collaboration with PCP review medical work up, as it is not clear that current symptoms related to primarily psychiatric condition. He used to be on adderal, prazosin which were stopped due to reports of dizziness and low BP. PLAN 1. Admit to M5, CV, 15 minutes checks for safety 2. obtain collateral information from PCP, sister 3. aftercare planning 4. will hold on starting new med until collateral information. 02/02/24: Continue to work with pt, today, they were asleep and did not participate. 02/03: Continue eval/tx 02/07: CRP, ESR, Lyme, HIV OP scheduling for EEG, CLAUDIA, Neuro Psych testing Pain mgt- Lorazepam prn for head, chest, stomach pain Throat spray/drops for burning sensations pt reports. Cardiology consult. Reason for continued inpatient stay Substantial Risk for: rapid decompensation Time Spent With Patient Time: Total time managing care of this patient today ____ minutes.
[2024-02-08 19:46] VITALS: BP 116/57; PULSE 89; RESP 14; TEMP 36.6; O2SAT 98
[2024-02-09] MEDS: Omeprazole 20 MG CAPSULE.DR PO (06:51)
[2024-02-09 08:00] VITALS: BP 98/67; PULSE 109; RESP 18; TEMP 36.6; O2SAT 99
[2024-02-09] MEDS: Sertraline HCL 100 MG TABLET PO (08:59)
[2024-02-09] MEDS: Milk of Magnesia 30 ML ORAL.SUSP PO (09:01)
[2024-02-09] MEDS: polyethylene glycoL 3350 17 GM POWD.PACK PO (09:01)
[2024-02-09 10:14] LABS: C Reactive Protein < 0.04 mg/dL (< or = 0.50)
[2024-02-09 10:37] LABS: Erythrocyte Sedimentation Rate 2 MM/HR (0-20)
--- NOTE | 2024-02-09 11:15 | P.PNPSI_ITS ---
Subjective Subjective Date of Service: 02/09/24 Reason For Visit: Dizziness Subjective Notes: Conditional Voluntary Healthcare Proxy: No Guardianship: No Medical Problems Affecting Mental Status: No Interim History: Review of diagnostics, future planning, what to do should symptoms recur. Sister will meet with pt and tw 02/09 prior to DC. Pt reports no depression, encouraged to return to [facility] for 2d ECHO, recommended 24-48 hr telemetry, continue neuro eval with OP EEG, CLAUDIA eval and neuro psych testing. Also encouraged to discuss with PCP need for comprehensive endocrine eval as there is a family history of this Medication Compliance: Yes Side effects from medications: No Attending Groups: Intermittent Review of Systems as noted Medical Review of Systems: unchanged Review of Systems Review of Systems as noted Mental Status Exam Mental Status Exam Narrative: In today's visit he is alert, oriented and pleasant. Normal speech. Good eye contact. Affect is appropriate, subdued. No SI. Cognitively is intact. No abnormalities of gait. No musculoskeletal problems. Judgment is intact Diagnostics Vital Signs (24Hr): Vital Signs - 24 hr 02/08/24 19:46 02/09/24 08:00 Temperature 97.8 F 97.8 F Pulse Rate 89 109 H Respiratory Rate 14 18 Blood Pressure 116/57 L 98/67 Pulse Oximetry 98 99 Oxygen Delivery Method Room Air Room Air BMI result Body Mass Index 25.5 Labs 01/29/24 11:37 01/29/24 11:37 Labs: Laboratory Results - last 48 hr 02/07/24 02/09/24 10:59 09:40 ESR 2 C-Reactive Protein < 0.04 TSH 1.24 Medications Medications Current Medications Acetaminophen (Acetaminophen 325 Mg Tablet) 650 mg PO Q6H PRN PRN Reason: Headache/Pain Mild Scale (1-3) Last Admin: 02/06/24 19:50 Dose: 650 mg Al Hydroxide/Mg Hydroxide (Magnesium Hydrox/Alum Hydrox 30 Ml Oral.Susp) 30 ml PO Q6H PRN PRN Reason: Heartburn/Nausea Benzocaine (Throat Lozenge, Medicated Lozenge) 1 lozenge MUCOUS MEM Q2H PRN PRN Reason: Sore Throat Hydroxyzine HCl (Hydroxyzine Hcl 25 Mg Tablet) 25 mg PO Q6H PRN PRN Reason: Anxiety Last Admin: 02/08/24 11:15 Dose: 25 mg Lorazepam (Lorazepam 1 Mg Tablet) 1 mg PO Q6H PRN PRN Reason: headache, chest pains Magnesium Hydroxide (Milk Of Magnesia 30 Ml Oral.Susp) 30 ml PO DAILY PRN PRN Reason: Constipation Last Admin: 02/09/24 09:01 Dose: 30 ml Multi-Ingred Medicated Throat [place] (Throat [place], Medicated 177 Ml Bottle) 1 spray MUCOUS MEM Q2H PRN PRN Reason: Pain, Mild (Pain Scale 1-3) Nicotine (Nicotine 21 Mg Patch.Td24) 21 mg TRANSDERMA DAILY PRN PRN Reason: smoking cessation Nicotine Polacrilex (Nicotine Polacrilex 2 Mg Gum) 4 mg BUCCAL Q2H PRN PRN Reason: Nicotine Cravings Omeprazole (Omeprazole 20 Mg Capsule.Dr) 20 mg PO DAILY@0630 [facility] Last Admin: 02/09/24 06:51 Dose: 20 mg Ondansetron HCl (Ondansetron Odt 4 Mg Tab.Rapdis) 4 mg TRANSLINGU Q8H PRN PRN Reason: Nausea and Vomiting Last Admin: 02/08/24 08:31 Dose: 4 mg Polyethylene Glycol (Polyethylene Glycol 3350 17 Gm Powd.Pack) 17 gm PO BID PRN PRN Reason: constipation Last Admin: 02/09/24 09:01 Dose: 17 gm Sertraline HCl (Sertraline Hcl 100 Mg Tablet) 100 mg PO DAILY [facility] Last Admin: 02/09/24 08:59 Dose: 100 mg Trazodone HCl (Trazodone Hcl 50 Mg Tablet) 50 mg PO BEDTIME MRX1 PRN PRN Reason: Insomnia Last Admin: 02/05/24 03:34 Dose: 50 mg Allergies Allergies Allergy/AdvReac Type Severity Reaction Status Date / Time No Known Allergies Allergy Verified 01/29/24 11:14 Assessment & Plan Assessment & Plan (1) MDD (major depressive disorder), recurrent episode, severe: Status: Acute Code(s): F33.2 - Major depressive disorder, recurrent severe without psychotic features Plan Alison is a 23 year-old F-to-M trans who initially was brought by sister due to dizziness, chest pain, headache, fatigue, unexplained weight loss which has been going on for some months and significantly affecting ability to function. Work up has been for the most part negative including EKG, CMP without electrolyte abnormalities, CBC mostly unremarkable. He denies SI/HI. We discussed collaboration with PCP review medical work up, as it is not clear that current symptoms related to primarily psychiatric condition. He used to be on adderal, prazosin which were stopped due to reports of dizziness and low BP. PLAN 1. Admit to M5, CV, 15 minutes checks for safety 2. obtain collateral information from PCP, sister 3. aftercare planning 4. will hold on starting new med until collateral information. 02/02/24: Continue to work with pt, today, they were asleep and did not participate. 02/03: Continue eval/tx 02/07: CRP, ESR, Lyme, HIV OP scheduling for EEG, CLAUDIA, Neuro Psych testing Pain mgt- Lorazepam prn for head, chest, stomach pain Throat spray/drops for burning sensations pt reports. Cardiology consult. 02/08: Discharge 02/09. Will continue eval as an out pt with cardiology, neurology, respiratory, neuropsych testing, PCP and possibly endocrine team. Reason for continued inpatient stay Substantial Risk for: med/psych decompensation Time Spent With Patient Time: Total time managing care of this patient today ____ minutes.
[2024-02-09 11:52] LABS: HIV AB/AG Nonreactive (Nonreactive); HIV Num 1 0.05 S/CO (0.00-0.99)
[2024-02-09] MEDS: hydrOXYzine HCL 25 MG TABLET PO (13:38)
--- NOTE | 2024-02-09 16:40 | P.CONCA_ITS ---
History of Present Illness History of Present Illness Date of Service: 02/09/24 Chief complaint: Dizziness Narrative: 23-year-old female to male transgender presenting with dizziness. Since November he has been getting dizzy spells and has collapsed had 1 occasion at least. He is describing that in November he stood up and felt slightly dizzy and then turned and fell to the ground. Unclear whether he clearly had syncope or not but felt that he had some consciousness still there. No history of seizures. Previously seen by escort vehicle driver and had workup done which did not reveal anything significant other than EF of 40% by his report. We do not have any records currently. He has been experiencing dizziness although he has been drinking a lot of water reportedly. Noted to be tachycardic on vital signs recorded in the chart with heart rate of 109 and borderline blood pressure in 100s. Atypical sharp chest pains off and on. No recent viral illness. No drug abuse. [facility] Past Medical History Medical History PTSD (post-traumatic stress disorder) Depression Social History Social History (Updated 01/29/24 @ 12:37 by Gela Musa DO) Household Members: Other Household Members Other:: sister Angela Bo Housing: Apartment Do you presently have visiting nurse or other home services: No Unable to assess alcohol history related to: Refusing to respond Patient Tobacco Use Status: Never used Tobacco Smoked in Last 30 Days: No e-Cigarette/Vaping Use: Never Used Second Hand Smoke Exposure: No Use of substances other than those prescribed or required for medical reasons: No Currently Displaying Signs/Symptoms of Drug Intoxication Withdrawal: No Have you been hit, kicked, punched, or otherwise hurt by someone within the past year? If so, by whom?: No Do you feel safe in your current relationship?: No Current Relationship Is there a partner from a previous relationship who is making you feel unsafe now?: No Are you made to feel afraid or neglected: No Spiritual Healthcare Practices: none Uatsdin Healthcare Practices: none Cultural Healthcare Practices: none Advance Directives: No Advance Directives Information Provided: Yes Do you have thoughts of harming others: None Do you have a plan to hurt others: No Plan Recently lost weight without trying: Unsure Eating poorly because of decreased appetite: Yes Nutrition Risks: Poor intake 0-25% >4 days Patient : No : No Poor oral hygiene: No service: No Sexual orientation: Unable to collect Meds Allergies Allergy/AdvReac Type Severity Reaction Status Date / Time No Known Allergies Allergy Verified 01/29/24 11:14 Active Medications: Current Medications Acetaminophen (Acetaminophen 325 Mg Tablet) 650 mg PO Q6H PRN PRN Reason: Headache/Pain Mild Scale (1-3) Last Admin: 02/06/24 19:50 Dose: 650 mg Al Hydroxide/Mg Hydroxide (Magnesium Hydrox/Alum Hydrox 30 Ml Oral.Susp) 30 ml PO Q6H PRN PRN Reason: Heartburn/Nausea Benzocaine (Throat Lozenge, Medicated Lozenge) 1 lozenge MUCOUS MEM Q2H PRN PRN Reason: Sore Throat Hydroxyzine HCl (Hydroxyzine Hcl 25 Mg Tablet) 25 mg PO Q6H PRN PRN Reason: Anxiety Last Admin: 02/09/24 13:38 Dose: 25 mg Lorazepam (Lorazepam 1 Mg Tablet) 1 mg PO Q6H PRN PRN Reason: headache, chest pains Magnesium Hydroxide (Milk Of Magnesia 30 Ml Oral.Susp) 30 ml PO DAILY PRN PRN Reason: Constipation Last Admin: 02/09/24 09:01 Dose: 30 ml Multi-Ingred Medicated Throat [place] (Throat [place], Medicated 177 Ml Bottle) 1 spray MUCOUS MEM Q2H PRN PRN Reason: Pain, Mild (Pain Scale 1-3) Nicotine (Nicotine 21 Mg Patch.Td24) 21 mg TRANSDERMA DAILY PRN PRN Reason: smoking cessation Nicotine Polacrilex (Nicotine Polacrilex 2 Mg Gum) 4 mg BUCCAL Q2H PRN PRN Reason: Nicotine Cravings Omeprazole (Omeprazole 20 Mg Capsule.Dr) 20 mg PO DAILY@0630 [facility] Last Admin: 02/09/24 06:51 Dose: 20 mg Ondansetron HCl (Ondansetron Odt 4 Mg Tab.Rapdis) 4 mg TRANSLINGU Q8H PRN PRN Reason: Nausea and Vomiting Last Admin: 02/08/24 08:31 Dose: 4 mg Polyethylene Glycol (Polyethylene Glycol 3350 17 Gm Powd.Pack) 17 gm PO BID PRN PRN Reason: constipation Last Admin: 02/09/24 09:01 Dose: 17 gm Sertraline HCl (Sertraline Hcl 100 Mg Tablet) 100 mg PO DAILY [facility] Last Admin: 02/09/24 08:59 Dose: 100 mg Trazodone HCl (Trazodone Hcl 50 Mg Tablet) 50 mg PO BEDTIME MRX1 PRN PRN Reason: Insomnia Last Admin: 02/05/24 03:34 Dose: 50 mg Home Medications ?Medication ?Instructions ?Recorded ?Confirmed ?Last Taken ?Type No Known Home Meds 01/30/24 01/30/24 Unknown History Physical Exam 2 Vital Signs: Vital Signs: Last Vital Signs Temp 97.8 F 02/09/24 08:00 Pulse 109 H 02/09/24 08:00 Resp 18 02/09/24 08:00 BP 98/67 02/09/24 08:00 Pulse Ox 99 02/09/24 08:00 O2 Del Method Room Air 02/09/24 08:00 BMI result Body Mass Index 25.5 GENERAL APPEARANCE: in no acute distress, pleasant. NECK: no carotid bruit, no jugular venous distention. SKIN: no suspicious lesions, warm and dry. HEART: no murmurs, regular rate and rhythm. LUNGS: clear to auscultation bilaterally. ABDOMEN: soft, nontender. EXTREMITIES: no edema. PERIPHERAL PULSES: equal. NEUROLOGIC: No gross deficits, AAO X 3 Objective Labs and Meds 01/29/24 11:37 01/29/24 11:37 Lab results: Laboratory Results - last 24 hr 02/09/24 09:40 ESR 2 C-Reactive Protein < 0.04 HIV 1&2 Ab/P24 Ag 4thGn Nonreactive Assessment and Plan (1) Severe depression: Status: Acute (2) Dizziness: Status: Acute Plan 23-year-old female to male transgender presenting with dizziness. Previous presyncope/syncopal episode. Workup was done at [facility]. Please get records. Heart rate is 109 blood pressure 98 / 67. Check orthostatics and document. If truly orthostatic then IV fluid hydration with normal saline 150 cc/hour x2 L and then reassessment of blood pressure and orthostatics. If no recent echocardiography done at [facility] then we will arrange an echocardiogram. If hydration does not improve blood pressure or orthostatics then would consider checking morning cortisol level. If persistently symptomatic then midodrine and other agents can be tried. Thank you for allowing me to participate in the care of your patient. Please feel free to contact me if you have any questions. Procedures Date of Service Date of Service: 02/09/24
[2024-02-09 17:45] VITALS: BP 110/65; PULSE 75; RESP 16; TEMP 36.1; O2SAT 99
[2024-02-09 17:48] VITALS: BP 109/72; PULSE 80
[2024-02-09 17:51] VITALS: BP 101/67; PULSE 100
[2024-02-09 20:38] VITALS: BP 112/86; PULSE 77; RESP 18; TEMP 36.8; O2SAT 98
[2024-02-10] MEDS: Omeprazole 20 MG CAPSULE.DR PO (06:51)
[2024-02-10] MEDS: Sertraline HCL 100 MG TABLET PO (08:29)
--- NOTE | 2024-02-10 10:30 | PM.PSYDC ---
DS: Providers Provider Date of Service: 02/10/24 Date of admission: 01/31/24 13:35 Date of discharge: 02/10/24 Primary care physician: Hector Deras MD Admitting clinician: Opal Clark Attending physician on admission: Robert Mendes Consults: 02/04/24 10:24 Consult to Neurology Routine Consulting Provider: [facility] Reason for consultation: vertigo,LESTER,dizziness,amnesia, speech changes, cognitive changes Has provider been notified: Yes 02/08/24 18:16 Consult to Cardiology Routine Consulting Provider: [facility] Reason for consultation: Heart failure, EF 40%, chest pain. Normal ekg Has provider been notified: No Attending physician on discharge: Robert Mendes Discharging clinician: Mariah Hirsch DS: Diagnosis Discharge Diagnosis (1) MDD (major depressive disorder), recurrent episode, severe: Status: Acute DS: Medications Discharge Medications Home Medications: Previous Rx's ?Medication ?Instructions ?Recorded omeprazole 20 mg capsule,delayed 20 mg PO DAILY@0630 #30 caps 02/09/24 release ondansetron 4 mg disintegrating 4 mg translingual Q8H PRN Nausea 02/09/24 tablet And Vomiting #15 tabs polyethylene glycol 3350 17 gram 17 g PO BID PRN constipation #30 02/09/24 oral powder packet packets sertraline 100 mg tablet 100 mg PO DAILY #30 tabs 02/09/24 trazodone 50 mg tablet 50 mg PO BEDTIME MRX1 PRN Insomnia 02/09/24 #60 tabs Mental Status Exam Mental Status Exam Patient Appearance: Appropriate Patient Orientation: Person, Place, Time and Situation Level of Consciousness: Alert Patient Behavior: Appropriate, Talkative, Cooperative and Good Eye Contact Mood Description: Appropriate Affect Description: Appropriate Patient Cognition Impaired: No Ability to Follow Directions: Good Speech Pattern: Spontaneous Speech Memory Description: Intact and Episodic Impaired Hallucinations: None Delusions: Not Present Thought Process: Intact Thought Content: positive for Intact Judgement: Good Data Data Completed and Pending Completed studies during hospitalization [Text1]: 02/07/24 02/09/24 10:59 09:40 ESR 2 C-Reactive Protein < 0.04 TSH 1.24 Lyme Screen IgG & IgM Pending Lyme Progressive Test Pending HIV 1&2 Ab/P24 Ag 4thGn Nonreactive DS: Summary Hospital Course Hospital Course: Admission to adult psychiatry for exacerbation of chest pain, fatigue, dizziness, lightheadedness, walking difficulty, speaking difficulty, headache, mental lack of clarity, weakness and tiredness with BP changes, some orthostasis with HR compensation. Medications were evaluated and adjusted. Sertraline was re-started. Pt tolerated 100 mg daily. ADHD regime continues to be held as pt reportedly has EF40% per [facility] and is in need of further testing. Pt seen by neurology, cardiology. Diagnostics were completed with findings of high cholesterol 274, LDL 209, HDL 39. CRP was 0.04, ESR WNL. Lyme test results are still pending. Pt reported no sx of depression, no SI and physical sx did have some decrease during admission. Pt will continue with [facility], [facility] for eval and neuro psych testing along with CLAUDIA eval, ECHO, EEG. He and family were educated regarding plan of care and he is aware he may call or return as needed for further treatment. Status at Discharge Functional status at discharge: independent ambulation Overall status at discharge: patient is progressing back to baseline Time Spent with Patient Time attestation: Total time managing care of this patient today ____ minutes. Time spent: Less than 30 minutes Discharge Plan Discharge Anticipated Discharge Date/Time: 02/10/24 12:00 Patient Disposition: Home, Self-Care Discharge Diagnosis: Recurrent major depression Referrals: [facility] with Jamia Perales [Other] - 03/09/24 3:40 pm [facility] with Rosina Rossi [Other] - 02/18/24 10:00 am (Telehealth - if you like working with Rosina ask her if she can fit you into her schedule otherwise there is the [facility] as a fill-in until they find you a more permanent therapist. ) Hector Deras MD [Primary Care Provider] - 02/14/24 4:00 pm (in office) Discharge Medications: New trazodone 50 mg Tablet 50 mg PO BEDTIME MRX1 PRN (Reason: Insomnia) Qty: 60 0RF polyethylene glycol 3350 17 gram Powder In Packet 17 g PO BID PRN (Reason: constipation) Qty: 30 0RF sertraline 100 mg Tablet 100 mg PO DAILY Qty: 30 0RF omeprazole 20 mg Capsule,Delayed Release(Dr/Ec) 20 mg PO DAILY@0630 Qty: 30 0RF ondansetron 4 mg Tablet,Disintegrating 4 mg translingual Q8H PRN (Reason: Nausea And Vomiting) Qty: 15 0RF Discharge Orders: Discharge Order (Routine); Ordered 02/10/24 Ordered By: Mariah Hirsch Diet: Advance to usual diet Activity on Discharge: As tolerated Stand Alone Forms: Patient Portal Discharge page, Community Support Print Language: Turkmen Care Plan Goals: Symptom resolution Health Concerns: Symptom resolution Plan of Treatment: Continue neuro/cardiac evaluation ----[facility] February 15, 2024 10am They will decide if you require a sleep evaluation. ----[facility] with Madisyn Wild [phone] They will call you to schedule an appointment They will decide in your appointment if you will need an EEG They will be able to refer for neurological-psychological testing with [facility]. Take medications as directed Attend scheduled appointments Call or return as needed Assessment: Scheduled discharge Discharge Date/Time: 02/10/24 12:30
[2024-02-12 09:13] LABS: Lyme Abs Screen <0.90 index
== END 2024-02-10 12:30 | disposition home or self-care (01) | DRG 751 ==
LOC: HO.ED 01-31 13:48 → HO.PM5 01-31 14:16
PROVIDERS: Emergency Medicine; Registered Nurse Emergency; Admitting Provider Psychiatry & Neurology Psychiatry; Emergency Provider Emergency Medicine Emergency Medical Services; PCP Internal Medicine; Visit Provider Clinical Nurse Specialist Psychiatric/Mental Health, Adult
DX: F33.2 Major depressive disorder, recurrent severe without psychotic features (principal); F43.10 Post-traumatic stress disorder, unspecified; F64.0 Transsexualism; Z79.899 Other long term (current) drug therapy
CPT/HCPCS: 36415; 80053; 80061; 80307; 81003; 82607; 82746; 83036; 83735; 84443; 84484; 84702; 85025; 85379; 85610; 85652; 86140; 86617; 86618; 87389; 87651; 93005; 99285; S9485

== ENCOUNTER → 2024-01-29 11:14 | Outpatient (BNV) | payer MEDICAID, SELFPAY | PROVIDERS: Emergency Provider Emergency Medicine; PCP Internal Medicine; Visit Provider Internal Medicine Cardiovascular Disease | DX: R94.31 Abnormal electrocardiogram [ECG] [EKG] (principal); R51.9 Headache, unspecified | CPT/HCPCS: 93010 ==

== ENCOUNTER → 2024-01-31 13:35 | Outpatient (BNV) | payer MEDICAID, SELFPAY | PROVIDERS: Admitting Provider Psychiatry & Neurology Psychiatry; Emergency Provider Emergency Medicine Emergency Medical Services; PCP Internal Medicine; Visit Provider Internal Medicine Cardiovascular Disease | DX: F32.2 Major depressive disorder, single episode, severe without psychotic features (principal); R42 Dizziness and giddiness | CPT/HCPCS: 99223 ==

== ENCOUNTER → 2024-01-31 13:35 | Outpatient (BNV) | payer OTHER, SELFPAY | PROVIDERS: Admitting Provider Psychiatry & Neurology Psychiatry; Emergency Provider Emergency Medicine Emergency Medical Services; PCP Internal Medicine; Visit Provider Clinical Nurse Specialist Psychiatric/Mental Health, Adult | DX: F33.2 Major depressive disorder, recurrent severe without psychotic features (principal) | CPT/HCPCS: 99231; 99232 ==

== ENCOUNTER → 2024-01-31 13:35 | Outpatient (BNV) | payer MEDICAID, SELFPAY | PROVIDERS: Admitting Provider Psychiatry & Neurology Psychiatry; Emergency Provider Emergency Medicine Emergency Medical Services; PCP Internal Medicine; Visit Provider Psychiatry & Neurology Neurology | DX: F32.2 Major depressive disorder, single episode, severe without psychotic features (principal); G44.209 Tension-type headache, unspecified, not intractable | CPT/HCPCS: 99222 ==